=== PATIENT | male | born 2000 | race Caucasian/White ===

== ENCOUNTER → 2024-07-15 09:08 | Outpatient (REF) | payer OTHER, SELFPAY | LOC: RCS 09:08 | PROVIDERS: ATTENDING PHYSICIAN Family Medicine | DX: Z86.79 Personal history of other diseases of the circulatory system (principal); R07.89 Other chest pain; R00.2 Palpitations; R06.02 Shortness of breath | CPT/HCPCS: 93225; 93226; 93306 ==